=== PATIENT | female | born 2000 ===

== ENCOUNTER 2022-04-30 11:32 | Emergency (ER) | payer MEDICAID, OTHER ==
[~2022-04-30] VITALS: Ht 167.6 cm; Wt 42.0 kg
[2022-04-30 12:34] VITALS: BP 141/87
== END 2022-04-30 13:25 | disposition left against medical advice (07) ==
LOC: ER 11:32
DX: R41.9 Unspecified symptoms and signs involving cognitive functions and awareness (principal); R07.89 Other chest pain; Z53.21 Procedure and treatment not carried out due to patient leaving prior to being seen by health care provider
CPT/HCPCS: 93005